=== PATIENT | male | born 1980 | race American Indian/Alaskan Native ===

== ENCOUNTER 2020-04-17 19:36 | Observation (INO) | payer MEDICAID ==
[2020-04-17 20:43] LABS: ANION GAP 14.5 mEq/L (7-13); CHLORIDE,CL 106 mmol/L (98-107); SODIUM,NA 144 mmol/L (136-145)
--- NOTE | 2020-04-17 21:56 | CT ---
PROCEDURE INFORMATION: Exam: CT Cervical Spine Without Contrast Exam date and time: 04/17/2020 9:34 PM Age: 40 years old Clinical indication: Other: Etoh--fell down stairs; Additional info: Fell down stair, intox TECHNIQUE: Imaging protocol: Computed tomography images of the cervical spine without contrast. Radiation optimization: All CT scans at this facility use at least one of these dose optimization techniques: automated exposure control; mA and/or kV adjustment per patient size (includes targeted exams where dose is matched to clinical indication); or iterative reconstruction. COMPARISON: No relevant prior studies available. FINDINGS: Vertebrae: Multilevel discogenic degenerative changes. Normal vertebral alignment. No spinal stenosis. Mild facet DJD. Soft tissues: Unremarkable. Lungs: Lung apices are normal. IMPRESSION: 1. No fracture or malalignment. 2. Mild degenerative spondylosis.
--- NOTE | 2020-04-17 21:58 | CT ---
PROCEDURE INFORMATION: Exam: CT Pelvis Without Contrast; Skeletal Exam date and time: 04/17/2020 9:34 PM Age: 40 years old Clinical indication: Other: Etoh--fell down stairs, left hip pain; Additional info: Fell down stair, intox TECHNIQUE: Imaging protocol: Computed tomography images of the pelvis without contrast. Exam focused on the skeletal structures. Radiation optimization: All CT scans at this facility use at least one of these dose optimization techniques: automated exposure control; mA and/or kV adjustment per patient size (includes targeted exams where dose is matched to clinical indication); or iterative reconstruction. COMPARISON: No relevant prior studies available. FINDINGS: Stomach and bowel: No bowel obstruction. Bladder: The bladder is moderately dilated. Intraperitoneal space: No free fluid, free air. Vasculature: The vasculature demonstrates diffuse mild atherosclerotic calcification. Bones/joints: There are degenerative changes involving the visualized lumbar spine. No acute fracture, dislocation, destructive osseous lesion. Soft tissues: Small, fat-containing umbilical hernia. Varicose veins are present in the ventral subcutaneous fat. There is suggestion of dependent appearing edema within the posterior soft tissue/subcutaneous fat. Other findings: Motion artifact is present. IMPRESSION: No acute osseous abnormality.
--- NOTE | 2020-04-17 22:00 | CT ---
PROCEDURE INFORMATION: Exam: CT Head Without Contrast Exam date and time: 04/17/2020 9:34 PM Age: 40 years old Clinical indication: Other: Etoh--fell downstairs; Additional info: Fell down stair, intox TECHNIQUE: Imaging protocol: Computed tomography of the head without contrast. Radiation optimization: All CT scans at this facility use at least one of these dose optimization techniques: automated exposure control; mA and/or kV adjustment per patient size (includes targeted exams where dose is matched to clinical indication); or iterative reconstruction. COMPARISON: No relevant prior studies available. FINDINGS: Brain: Mild cerebral volume loss. No hemorrhage. Unremarkable white matter. No mass effect. Ventricles: Normal. No ventriculomegaly. Bones/joints: Unremarkable. No acute fracture. Sinuses: Visualized sinuses are unremarkable. No fluid levels. Mastoid air cells: Visualized mastoid air cells are well aerated. Soft tissues: Unremarkable. IMPRESSION: No acute intracranial abnormality.
--- NOTE | 2020-04-17 22:28 | EDM.PDOC ---
ED [facility] GENERAL MEDICAL PROBLEM - General Chief Complaint: Lower Extremity Injury/Pain Stated Complaint: AMBULANCE Time Seen by Provider: 04/17/20 22:26 Source of Information: Reports: Patient History Limitations: Reports: No Limitations - History of Present Illness INITIAL COMMENTS - FREE TEXT/NARRATIVE: c/o pain in his left hip area, fell down stairs today, unknown head injury admits to drinking today. Left Lower Knee Pain Score (Numeric/FACES): 8 Past Medical History Musculoskeletal History: Reports: Amputation - Past Surgical History Respiratory Surgical History: Reports: None Musculoskeletal Surgical History: Reports: Amputation Social & Family History - Tobacco Use Smoking Status *Q: Unknown Ever Smoked Second Hand Smoke Exposure: No - Caffeine Use Caffeine Use: Reports: None - Recreational Drug Use Recreational Drug Use: Yes Recreational Drug Use Frequency: Not Used In Over 6 Months Review of Systems - Review of Systems Review Of Systems: Comprehensive ROS is negative, except as noted in HPI. ED EXAM, GENERAL - Physical Exam Exam: See Below Exam Limited By: No Limitations General Appearance: Alert, WD/WN, Mild Distress, Other (left stump-hip pain) Ears: Hearing Grossly Normal Throat/Mouth: Normal Voice, No Airway Compromise Head: Atraumatic Neck: Non-Tender, Full Range of Motion Respiratory/Chest: No Respiratory Distress Cardiovascular: Regular Rate, Rhythm GI/Abdominal: Soft, Non-Tender Back Exam: Other (haenatoma posterior left hip area) Neurological: Alert, Oriented, No Motor/Sensory Deficits, Inattentive Psychiatric: Normal Affect, Normal Mood Skin Exam: Warm, Dry, Normal Color Lymphatic: No Adenopathy Course - Vital Signs Last Recorded V/S: Last Vital Signs Temp 37.8 C 04/17/20 19:47 Pulse 86 04/17/20 19:47 Resp 18 04/17/20 19:47 BP 158/94 H 04/17/20 19:47 Pulse Ox 94 L 04/17/20 19:47 - Orders/Labs/Meds Orders: Active Orders 24 hr Category Date Time Status MVI w/Vit K 10 ML,Folic Acid 1 MG,Thiamine 100 MG in LR Med 04/17/20 22:30 Ordered @ 999 MLS/HR MVI, Adult with Vitamin K [Infuvite Adult] 10 ml Folic Acid 1 mg Thiamine [Vitamin B-1] 100 mg Lactated Ringers [Ringers, Lactated] 1,000 ml IV ONETIME Medication Orders Multivitamins/Minerals 10 ml/Folic Acid 1 mg/ Thiamine HCl 100 mg/ Lactated Ringer's 1,011.2 mls @ 999 mls/hr IV ONETIME ONE Stop: 04/17/20 23:30 Labs: Laboratory Tests 04/17/20 04/17/20 Range/Units 20:16 20:16 WBC 3.0 L (5.0-10.0) 10^3/uL RBC 4.52 L (4.6-6.2) 10^6/uL Hgb 14.1 (14.0-18.0) g/dL Hct 39.9 L (40.0-54.0) % MCV 88.3 (80-100) fL MCH 31.2 (27.0-34.0) pg MCHC 35.3 H (33.0-35.0) g/dL Plt Count 25 L* (150-450) 10^3/uL Neut % (Auto) 74.8 (42.2-75.2) % Lymph % (Auto) 16.6 L (20.5-50.1) % [place] % (Auto) 6.6 (2-8) % Eos % (Auto) 1.3 (1.0-3.0) % Baso % (Auto) 0.7 (0.0-1.0) % Add Manual Diff Yes Neutrophils % (Manual) 75 (42-75) % Lymphocytes % (Manual) 17 L (20-50) % Monocytes % (Manual) 6 (2-8) % Eosinophils % (Manual) 2 (1-3) % Platelet Estimate Marked dec Sodium 144 (136-145) mmol/L Potassium 3.5 (3.5-5.1) mmol/L Chloride 106 (98-107) mmol/L Carbon Dioxide 27 (21-32) mmol/L Anion Gap 14.5 H (7-13) mEq/L BUN 4 L (7-18) mg/dL Creatinine 0.69 L (0.70-1.30) mg/dL Est Cr Clr Drug Dosing 166.10 mL/min Estimated GFR (MDRD) > 60 BUN/Creatinine Ratio 5.8 (No establ ref range) Glucose 111 H (74-99) mg/dL Calcium 7.2 L (8.5-10.1) mg/dL Total Bilirubin 2.1 H (0.2-1.0) mg/dL AST 125 H (15-37) U/L ALT 56 (16-63) U/L Alkaline Phosphatase 155 H (46-116) U/L Total Protein 7.8 (6.4-8.2) g/dL Albumin 2.9 L (3.4-5.0) g/dL Globulin 4.9 Albumin/Globulin Ratio 0.59 Ethyl Alcohol 504 (0) mg/dL Meds: Medications Generic Name Dose Route Start Last Admin Trade Name Freq PRN Reason Stop Dose Admin Multivitamins/Minerals 10 ml/ 1,011.2 mls @ 999 mls/hr 04/17/20 22:30 Folic Acid 1 mg/ Thiamine HCl IV 04/17/20 23:30 100 mg/ Lactated Ringer's ONETIME ONE - Re-Assessments/Exams Free Text/Narrative Re-Assessment/Exam: 04/17/20 22:[address] Purvis who kindly admitted pt to observation Departure - Departure Time of Disposition: 22:40 Disposition: Refer to Observation Condition: Good Clinical Impression: Alcohol intoxication Qualifiers: Complication of substance-induced condition: uncomplicated Qualified Code(s): F10.920 - Alcohol use, unspecified with intoxication, uncomplicated Contusion of hip, left Qualifiers: Encounter type: initial encounter Qualified Code(s): S70.02XA - Contusion of left hip, initial encounter - Discharge Information Forms: ED Department Discharge Sepsis Event Note - Evaluation Sepsis Screening Result: No Definite Risk - Focused Exam Vital Signs: Vital Signs Temp Pulse Resp BP Pulse Ox 04/17/20 19:47 37.8 C 86 18 158/94 H 94 L Date Exam was Performed: 04/17/20 Time Exam was Performed: 22:39 - My Orders Last 24 Hours: My Active Orders 04/17/20 22:30 MVI w/Vit K 10 ML,Folic Acid 1 MG,Thiamine 100 MG in LR @ 999 MLS/HR MVI, Adult with Vitamin K [Infuvite Adult] 10 ml Folic Acid 1 mg Thiamine [Vitamin B-1] 100 mg Lactated Ringers [Ringers, Lactated] 1,000 ml IV ONETIME - Assessment/Plan Last 24 Hours: My Active Orders 04/17/20 22:30 MVI w/Vit K 10 ML,Folic Acid 1 MG,Thiamine 100 MG in LR @ 999 MLS/HR MVI, Adult with Vitamin K [Infuvite Adult] 10 ml Folic Acid 1 mg Thiamine [Vitamin B-1] 100 mg Lactated Ringers [Ringers, Lactated] 1,000 ml IV ONETIME
[2020-04-17] MEDS ORDERED: MVI, Adult with Vitamin K 10 ML, Folic Acid 1 MG, Thiamine 100 MG in Lactated Ringers 1... IV ONE ×4 (22:30)
[2020-04-17] MEDS ORDERED: LORazepam 2 MG/ML SDV IVPUSH PRN (23:42)
[2020-04-17] MEDS ORDERED: Zolpidem 5 MG Tab PO PRN (23:43)
[2020-04-17] MEDS ORDERED: Ibuprofen 400 MG Tab PO PRN (23:43)
[2020-04-17] MEDS ORDERED: Ondansetron 4 MG Tab.DIS PO PRN (23:43)
[2020-04-17] MEDS ORDERED: Sodium Chloride 0.9% 10 ML Syringe FLUSH PRN (23:43)
[2020-04-17] MEDS ORDERED: Docusate Sodium 100 MG Cap PO PRN (23:43)
--- NOTE | 2020-04-17 23:57 | PCM.HP ---
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 Has never been in treatment before. He is a from [facility] with the left below-knee amputation. Has been drinking heavily, 8 beers daily 4 days. Came to the emergency room, complaining of anxiety, concerned about withdrawal symptoms. He says previously when he had withdrawal it was anxiety. Never had seizure. He says he fell down the steps. Complaining of left leg pain at the amputation site. No chest pain. No shortness of breath. Left Lower Knee Pain Score (Numeric/FACES): 8 - Related Data Allergies/Adverse Reactions: Allergies Allergy/AdvReac Type Severity Reaction Status Date / Time sulfamethoxazole Allergy Hives Verified 04/17/20 23:22 [From Bactrim] trimethoprim [From Bactrim] Allergy Hives Verified 04/17/20 23:22 Home Medications: Home Meds . [No Known Home Meds] 04/17/20 [History] Past Medical History Musculoskeletal History: Reports: Amputation - Past Surgical History Respiratory Surgical History: Reports: None Musculoskeletal Surgical History: Reports: Amputation Social & Family History - Tobacco Use Smoking Status *Q: Unknown Ever Smoked Second Hand Smoke Exposure: No - Caffeine Use Caffeine Use: Reports: None - Recreational Drug Use Recreational Drug Use: Yes Recreational Drug Use Frequency: Not Used In Over 6 Months H&P Review of Systems - Review of Systems: Review Of Systems: See Below General: Denies: Fever, Chills Pulmonary: Denies: Shortness of Breath Cardiovascular: Denies: Chest Pain, Edema Gastrointestinal: Denies: Abdominal Pain Musculoskeletal: Reports: Leg Pain (left) Exam - Exam Exam: See Below - Vital Signs Vital Signs: Last Vital Signs Temp 100.0 F 04/17/20 19:47 Pulse 86 04/17/20 19:47 Resp 18 04/17/20 19:47 BP 158/94 H 04/17/20 19:47 Pulse Ox 94 L 04/17/20 19:47 Weight: 275 lb 6.4 oz - Exam General: Alert, Oriented Neck: Supple, Trachea Midline Lungs: Clear to Auscultation, Normal Respiratory Effort Cardiovascular: Regular Rate, Regular Rhythm GI/Abdominal Exam: Normal Bowel Sounds, Soft, Non-Tender Extremities: Other (Left below-knee amputation) - Patient Data Lab Results Last 24 hrs: Laboratory Results - last 24 hr 04/17/20 04/17/20 Range/Units 20:16 20:16 WBC 3.0 L (5.0-10.0) 10^3/uL RBC 4.52 L (4.6-6.2) 10^6/uL Hgb 14.1 (14.0-18.0) g/dL Hct 39.9 L (40.0-54.0) % MCV 88.3 (80-100) fL MCH 31.2 (27.0-34.0) pg MCHC 35.3 H (33.0-35.0) g/dL Plt Count 25 L* (150-450) 10^3/uL Neut % (Auto) 74.8 (42.2-75.2) % Lymph % (Auto) 16.6 L (20.5-50.1) % [place] % (Auto) 6.6 (2-8) % Eos % (Auto) 1.3 (1.0-3.0) % Baso % (Auto) 0.7 (0.0-1.0) % Add Manual Diff Yes Neutrophils % (Manual) 75 (42-75) % Lymphocytes % (Manual) 17 L (20-50) % Monocytes % (Manual) 6 (2-8) % Eosinophils % (Manual) 2 (1-3) % Platelet Estimate Marked dec Sodium 144 (136-145) mmol/L Potassium 3.5 (3.5-5.1) mmol/L Chloride 106 (98-107) mmol/L Carbon Dioxide 27 (21-32) mmol/L Anion Gap 14.5 H (7-13) mEq/L BUN 4 L (7-18) mg/dL Creatinine 0.69 L (0.70-1.30) mg/dL Est Cr Clr Drug Dosing 166.10 mL/min Estimated GFR (MDRD) > 60 BUN/Creatinine Ratio 5.8 (No establ ref range) Glucose 111 H (74-99) mg/dL Calcium 7.2 L (8.5-10.1) mg/dL Total Bilirubin 2.1 H (0.2-1.0) mg/dL AST 125 H (15-37) U/L ALT 56 (16-63) U/L Alkaline Phosphatase 155 H (46-116) U/L Total Protein 7.8 (6.4-8.2) g/dL Albumin 2.9 L (3.4-5.0) g/dL Globulin 4.9 Albumin/Globulin Ratio 0.59 Ethyl Alcohol 504 (0) mg/dL Result Diagrams: 04/17/20 20:16 04/17/20 20:16 - Problem List (1) Thrombocytopenia SNOMED Code(s): 303527019 ICD Code: D69.6 - THROMBOCYTOPENIA, UNSPECIFIED Status: Acute Current Visit: Yes (2) Alcohol intoxication SNOMED Code(s): 53400185 ICD Code: F10.929 - ALCOHOL USE, UNSPECIFIED WITH INTOXICATION, UNSPECIFIED Status: Acute Current Visit: No Qualifiers: Complication of substance-induced condition: uncomplicated Qualified Code(s ): F10.920 - Alcohol use, unspecified with intoxication, uncomplicated (3) Contusion of hip, left SNOMED Code(s): 91450875 ICD Code: S70.02XA - CONTUSION OF LEFT HIP, INITIAL ENCOUNTER Status: Acute Current Visit: No Qualifiers: Encounter type: initial encounter Qualified Code(s): S70.02XA - Contusion of left hip, initial encounter Problem List Initiated/Reviewed/Updated: Yes Orders Last 24hrs: Active Orders 24 hr Category Date Time Status Admission Diagnosis [ADT] Stat ADT 04/17/20 22:41 Ordered Admission Status [Patient Status] [ADT] Routine ADT 04/17/20 22:41 Active Antiembolic Devices [RC] PER UNIT ROUTINE Care 04/17/20 23:44 Ordered Oxygen Therapy [RC] PRN Care 04/17/20 23:43 Ordered Peripheral IV Care [RC] . DIRECTED Care 04/17/20 23:44 Ordered Up With Assistance [RC] ASDIRECTED Care 04/17/20 23:43 Ordered VTE/DVT Education [RC] PER UNIT ROUTINE Care 04/17/20 23:43 Ordered Vital Signs [RC] Q4H Care 04/17/20 23:43 Ordered Regular Diet [DIET] Diet 04/17/20 Breakfast Ordered BASIC METABOLIC PANEL,BMP [CHEM] AM Lab 04/18/20 05:15 Ordered CBC WITH AUTO DIFF [HEME] AM Lab 04/18/20 05:15 Ordered MAGNESIUM [CHEM] AM Lab 04/18/20 05:11 Ordered PHOSPHORUS [CHEM] AM Lab 04/18/20 05:11 Ordered Acetaminophen [Tylenol] Med 04/17/20 23:43 Ordered 650 mg PO Q4H PRN Docusate Sodium [Colace] Med 04/17/20 23:43 Ordered 100 mg PO BID PRN Folic Acid Med 04/18/20 09:00 Ordered 1 mg PO DAILY Ibuprofen [Motrin] Med 04/17/20 23:43 Ordered 400 mg PO Q6H PRN LORazepam [Ativan] Med 04/17/20 23:42 Ordered See Protocol IVPUSH Q1H PRN LORazepam [Ativan] Med 04/17/20 23:43 Ordered See Protocol PO Q1H PRN Multivitamins/Minerals [Vitamins and Minerals] Med 04/18/20 08:00 Ordered 1 tab PO WITHBREAKFAST Ondansetron [Zofran ODT] Med 04/17/20 23:43 Ordered 4 mg PO Q6H PRN Sodium Chloride 0.9% [Saline Flush] Med 04/17/20 23:43 Ordered 10 ml FLUSH ASDIRECTED PRN Thiamine [Vitamin B-1] Med 04/18/20 09:00 Ordered 100 mg PO DAILY Zolpidem [Ambien] Med 04/17/20 23:43 Ordered 5 mg PO BEDTIME PRN Antiembolic Hose [OM.PC] Per Unit Routine Oth 04/17/20 23:44 Ordered Peripheral IV Insertion Adult [OM.PC] Routine Oth 04/17/20 23:43 Ordered Sequential Compression Device [OM.PC] Per Unit Routine Oth 04/17/20 23:44 Ordered Resuscitation Status Routine Resus Stat 04/17/20 23:43 Ordered Medication Orders Acetaminophen (Tylenol) 650 mg PO Q4H PRN PRN Reason: Pain (Mild 1-3)/fever Docusate Sodium (Colace) 100 mg PO BID PRN PRN Reason: Constipation Folic Acid (Folic Acid) 1 mg PO DAILY MITALI Ibuprofen (Motrin) 400 mg PO Q6H PRN PRN Reason: Pain (moderate 4-6) Lorazepam (Ativan) 0 mg IVPUSH Q1H PRN; Protocol PRN Reason: [facility] protocol Lorazepam (Ativan) 0 mg PO Q1H PRN; Protocol PRN Reason: ciwa ptotocol Multivitamins/Minerals (Vitamins And Minerals) 1 tab PO WITHBREAKFAST MITALI Ondansetron HCl (Zofran Odt) 4 mg PO Q6H PRN PRN Reason: nausea, able to take PO Sodium Chloride (Saline Flush) 10 ml FLUSH ASDIRECTED PRN PRN Reason: Keep Vein Open Thiamine HCl (Vitamin B-1) 100 mg PO DAILY MITALI Zolpidem Tartrate (Ambien) 5 mg PO BEDTIME PRN PRN Reason: Sleep Assessment/Plan Comment:: 40-year-old with below-knee left leg amputation. History of alcohol abuse. Presented after a fall, alcohol intoxication, would like to stop drinking. 1. Acute Alcohol intoxication. We will give the patient IV fluids with IV electrolyte replacement. Follow electrolytes. 2. Chronic Alcohol addiction. Consult Social Work and evaluate for alcohol treatment programs. 3. Chronic alcohol use. Supplement thiamine, folate and multivitamin. 4. High Risk for alcohol withdrawal. Frequent evaluations and titration of Ativan per the [facility] protocol 5. left leg pain will monitor no apparent bony injury tylenol for pain - avoid NSAIDS for pain (thrombocytopenia), avoid narcotics 6. hepatitis likely acloholic follow LFT-s 7. thrombocytopenia, leukopenia likely due to alcohol abuse will monitor 8. Deep venous thrombosis (DVT) prophylaxis will be with mobillization , scd right leg
[2020-04-18] MEDS: NS + KCl 20mEq/L 1,000 ML IV SCH ×2 (00:40→08:52)
[2020-04-18] MEDS: Acetaminophen 325 MG Tab PO PRN ×2 (01:20→08:49)
[2020-04-18] MEDS: LORazepam 1 MG Tab PO PRN ×3 (06:06→11:08)
[2020-04-18 06:45] LABS: ANION GAP 14.4 mEq/L (7-13); CHLORIDE,CL 108 mmol/L (98-107); SODIUM,NA 147 mmol/L (136-145)
[2020-04-18] MEDS ORDERED: Multivitamins, Therapeutic with Minerals Tab PO SCH (08:00)
[2020-04-18] MEDS ORDERED: Thiamine 100 MG Tab PO SCH (09:00)
[2020-04-18] MEDS ORDERED: Folic Acid 1 MG Tab PO SCH (09:00)
[2020-04-18 09:15] LABS: PTT,PARTIAL THROMBOPLSTIN TIME 33.4 SEC (22.0-34.0)
[2020-04-18] MEDS ORDERED: Potassium Chloride 10 MEQ Tab.ER PO ONE (10:49)
--- NOTE | 2020-04-18 11:13 | PCM.DCSUM1 ---
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 History of alcohol abuse. Presented after a fall, alcohol intoxication, would like to stop drinking. 1. Acute Alcohol intoxication. received IV fluids with IV electrolyte replacement. Follow electrolytes. 2. Chronic Alcohol addiction. Consult Social Work and evaluate for alcohol treatment programs. 3. Chronic alcohol use. Supplement thiamine, folate and multivitamin. 4. High Risk for alcohol withdrawal. Frequent evaluations and titration of Ativan per the CIWA protocol 5. fall while intoxicated ct head, C spine, Pelvis negative for bony abnormalities left leg pain, left flank bruise will monitor tylenol for pain - avoid NSAIDS for pain (thrombocytopenia), avoid narcotics 6. hepatitis likely acloholic follow LFT-s 7. thrombocytopenia, leukopenia appears to be chronic likely due to alcohol abuse ptt, fibrinogen, ddimer normal plt 8, recent injury - consider Plt transfusion - transfer to [facility] for eval 8. Deep venous thrombosis (DVT) prophylaxis was with mobillization , scd right leg Diagnosis: Stroke: No - Discharge Data Discharge Date: 04/18/20 Discharge Disposition: DC/Tfer to Acute Hospital 02 Condition: Fair - Referral to Home Health Primary Care Physician: PCP Unobtainable - Discharge Diagnosis/Problem(s) (1) Thrombocytopenia SNOMED Code(s): 800212800 ICD Code: D69.6 - THROMBOCYTOPENIA, UNSPECIFIED Status: Acute Current Visit: Yes (2) Alcohol intoxication SNOMED Code(s): 52706009 ICD Code: F10.929 - ALCOHOL USE, UNSPECIFIED WITH INTOXICATION, UNSPECIFIED Status: Acute Current Visit: No Qualifiers: Complication of substance-induced condition: uncomplicated Qualified Code(s ): F10.920 - Alcohol use, unspecified with intoxication, uncomplicated (3) Contusion of hip, left SNOMED Code(s): 39282589 ICD Code: S70.02XA - CONTUSION OF LEFT HIP, INITIAL ENCOUNTER Status: Acute Current Visit: No Qualifiers: Encounter type: initial encounter Qualified Code(s): S70.02XA - Contusion of left hip, initial encounter - Patient Instructions Diet: Heart Healthy Diet Activity: As Tolerated - Discharge Plan *PRESCRIPTION DRUG MONITORING PROGRAM REVIEWED*: Not Applicable *COPY OF PRESCRIPTION DRUG MONITORING REPORT IN PATIENT LEON: Not Applicable Home Medications: Home Meds Acetaminophen [Tylenol] 650 mg PO Q4H PRN tablet 04/18/20 [Rx] Docusate Sodium [Colace] 100 mg PO BID PRN cap 04/18/20 [Rx] Folic Acid 1 mg PO DAILY tablet 04/18/20 [Rx] LORazepam [Ativan] 0 mg IVPUSH Q1H PRN vial 04/18/20 [Rx] LORazepam [Ativan] 0 mg PO Q1H PRN tablet 04/18/20 [Rx] Multivitamins/Minerals [Vitamins and Minerals] 1 tab PO WITHBREAKFAST tablet [Rx] Ondansetron [Zofran ODT] 4 mg PO Q6H PRN tab.dis 04/18/20 [Rx] Sodium Chloride 0.9% [Saline Flush] 10 ml FLUSH ASDIRECTED PRN syringe [Rx] Thiamine [Vitamin B-1] 100 mg PO DAILY tablet 04/18/20 [Rx] Zolpidem [Ambien] 5 mg PO BEDTIME PRN tablet 04/18/20 [Rx] Oxygen Therapy Mode: Room Air - Discharge Summary/Plan Comment DC Time >30 min.: Yes (arranging transfer, ambulance, d/w [facility] one call, dr. Alanis) - General Info Date of Service: 04/18/20 Subjective Update: stable overnight moderate anxiety, no apparent bleeding c/o left leg stump pain, no bruise unchanged left flank bruise Functional Status: Reports: Tolerating Diet - Review of Systems General: Denies: Fever Pulmonary: Denies: Shortness of Breath Cardiovascular: Denies: Chest Pain Gastrointestinal: Denies: Abdominal Pain - Patient Data Vitals - Most Recent: Last Vital Signs Temp 98.8 F 04/18/20 08:00 Pulse 80 04/18/20 08:00 Resp 18 04/18/20 08:00 BP 129/67 04/18/20 08:00 Pulse Ox 92 L 04/18/20 08:00 Weight - Most Recent: 275 lb 6.4 oz I&O - Last 24 hours: Intake & Output 04/17/20 04/18/20 04/18/20 22:59 06:59 14:59 Intake Total 1000 1810 Output Total 750 Balance 250 1810 Lab Results - Last 24 hrs: Laboratory Results - last 24 hr 04/17/20 04/17/20 04/18/20 Range/Units 20:16 20:16 05:57 WBC 3.0 L 2.4 L (5.0-10.0) 10^3/uL RBC 4.52 L 3.95 L (4.6-6.2) 10^6/uL Hgb 14.1 12.3 L D (14.0-18.0) g/dL Hct 39.9 L 35.5 L (40.0-54.0) % MCV 88.3 89.9 (80-100) fL MCH 31.2 31.1 (27.0-34.0) pg MCHC 35.3 H 34.6 (33.0-35.0) g/dL Plt Count 25 L* 8 L* (150-450) 10^3/uL Neut % (Auto) 74.8 65.7 (42.2-75.2) % Lymph % (Auto) 16.6 L 21.1 (20.5-50.1) % [place] % (Auto) 6.6 11.6 H (2-8) % Eos % (Auto) 1.3 1.2 (1.0-3.0) % Baso % (Auto) 0.7 0.4 (0.0-1.0) % Add Manual Diff Yes Neutrophils % (Manual) 75 (42-75) % Lymphocytes % (Manual) 17 L (20-50) % Monocytes % (Manual) 6 (2-8) % Eosinophils % (Manual) 2 (1-3) % Platelet Estimate Marked dec PT (9.0-12.0) SEC INR (0.9-1.2) APTT (22.0-34.0) SEC Fibrinogen (200-400) mg/dL D-Dimer, Quantitative (0-400) ng/mL Sodium 144 (136-145) mmol/L Potassium 3.5 (3.5-5.1) mmol/L Chloride 106 (98-107) mmol/L Carbon Dioxide 27 (21-32) mmol/L Anion Gap 14.5 H (7-13) mEq/L BUN 4 L (7-18) mg/dL Creatinine 0.69 L (0.70-1.30) mg/dL Est Cr Clr Drug Dosing 166.10 mL/min Estimated GFR (MDRD) > 60 BUN/Creatinine Ratio 5.8 (No establ ref range) Glucose 111 H (74-99) mg/dL Calcium 7.2 L (8.5-10.1) mg/dL Phosphorus (2.6-4.7) mg/dL Magnesium (1.8-2.4) mg/dL Total Bilirubin 2.1 H (0.2-1.0) mg/dL Direct Bilirubin (0.0-0.2) mg/dL Indirect Bilirubin AST 125 H (15-37) U/L ALT 56 (16-63) U/L Alkaline Phosphatase 155 H (46-116) U/L Total Protein 7.8 (6.4-8.2) g/dL Albumin 2.9 L (3.4-5.0) g/dL Globulin 4.9 Albumin/Globulin Ratio 0.59 Ethyl Alcohol 504 (0) mg/dL Blood Type Gel Antibody Screen 04/18/20 04/18/20 04/18/20 Range/Units 05:57 05:57 05:57 WBC (5.0-10.0) 10^3/uL RBC (4.6-6.2) 10^6/uL Hgb (14.0-18.0) g/dL Hct (40.0-54.0) % MCV (80-100) fL MCH (27.0-34.0) pg MCHC (33.0-35.0) g/dL Plt Count (150-450) 10^3/uL Neut % (Auto) (42.2-75.2) % Lymph % (Auto) (20.5-50.1) % [place] % (Auto) (2-8) % Eos % (Auto) (1.0-3.0) % Baso % (Auto) (0.0-1.0) % Add Manual Diff Neutrophils % (Manual) (42-75) % Lymphocytes % (Manual) (20-50) % Monocytes % (Manual) (2-8) % Eosinophils % (Manual) (1-3) % Platelet Estimate PT 13.8 H (9.0-12.0) SEC INR 1.5 H (0.9-1.2) APTT 33.4 (22.0-34.0) SEC Fibrinogen 226 (200-400) mg/dL D-Dimer, Quantitative 284 (0-400) ng/mL Sodium 147 H (136-145) mmol/L Potassium 3.4 L (3.5-5.1) mmol/L Chloride 108 H (98-107) mmol/L Carbon Dioxide 28 (21-32) mmol/L Anion Gap 14.4 H (7-13) mEq/L BUN 5 L (7-18) mg/dL Creatinine 0.73 (0.70-1.30) mg/dL Est Cr Clr Drug Dosing 156.99 mL/min Estimated GFR (MDRD) > 60 BUN/Creatinine Ratio (No establ ref range) Glucose 105 H (74-99) mg/dL Calcium 7.0 L (8.5-10.1) mg/dL Phosphorus 3.7 (2.6-4.7) mg/dL Magnesium 1.5 L (1.8-2.4) mg/dL Total Bilirubin (0.2-1.0) mg/dL Direct Bilirubin (0.0-0.2) mg/dL Indirect Bilirubin AST (15-37) U/L ALT (16-63) U/L Alkaline Phosphatase (46-116) U/L Total Protein (6.4-8.2) g/dL Albumin (3.4-5.0) g/dL Globulin Albumin/Globulin Ratio Ethyl Alcohol (0) mg/dL Blood Type Gel Antibody Screen 04/18/20 04/18/20 Range/Units 05:57 05:57 WBC (5.0-10.0) 10^3/uL RBC (4.6-6.2) 10^6/uL Hgb (14.0-18.0) g/dL Hct (40.0-54.0) % MCV (80-100) fL MCH (27.0-34.0) pg MCHC (33.0-35.0) g/dL Plt Count (150-450) 10^3/uL Neut % (Auto) (42.2-75.2) % Lymph % (Auto) (20.5-50.1) % [place] % (Auto) (2-8) % Eos % (Auto) (1.0-3.0) % Baso % (Auto) (0.0-1.0) % Add Manual Diff Neutrophils % (Manual) (42-75) % Lymphocytes % (Manual) (20-50) % Monocytes % (Manual) (2-8) % Eosinophils % (Manual) (1-3) % Platelet Estimate PT (9.0-12.0) SEC INR (0.9-1.2) APTT (22.0-34.0) SEC Fibrinogen (200-400) mg/dL D-Dimer, Quantitative (0-400) ng/mL Sodium (136-145) mmol/L Potassium (3.5-5.1) mmol/L Chloride (98-107) mmol/L Carbon Dioxide (21-32) mmol/L Anion Gap (7-13) mEq/L BUN (7-18) mg/dL Creatinine (0.70-1.30) mg/dL Est Cr Clr Drug Dosing mL/min Estimated GFR (MDRD) BUN/Creatinine Ratio (No establ ref range) Glucose (74-99) mg/dL Calcium (8.5-10.1) mg/dL Phosphorus (2.6-4.7) mg/dL Magnesium (1.8-2.4) mg/dL Total Bilirubin 1.5 H (0.2-1.0) mg/dL Direct Bilirubin 0.8 H (0.0-0.2) mg/dL Indirect Bilirubin 0.7 AST 108 H (15-37) U/L ALT 50 (16-63) U/L Alkaline Phosphatase 135 H (46-116) U/L Total Protein 6.8 (6.4-8.2) g/dL Albumin 2.4 L (3.4-5.0) g/dL Globulin 4.4 Albumin/Globulin Ratio 0.55 Ethyl Alcohol (0) mg/dL Blood Type B POSITIVE Gel Antibody Screen Negative Med Orders - Current: Current Medications Acetaminophen (Tylenol) 650 mg PO Q4H PRN PRN Reason: Pain (Mild 1-3)/fever Last Admin: 04/18/20 08:49 Dose: 650 mg Docusate Sodium (Colace) 100 mg PO BID PRN PRN Reason: Constipation Folic Acid (Folic Acid) 1 mg PO DAILY [facility] Last Admin: 04/18/20 08:46 Dose: 1 mg Potassium Chloride/Sodium Chloride (Normal Saline With 20 Meq Kcl) 1,000 mls @ 125 mls/hr IV ASDIRECTED [facility] Last Admin: 06/06/20 08:52 Dose: 125 mls/hr Lorazepam (Ativan) 0 mg IVPUSH Q1H PRN; Protocol PRN Reason: ciwa protocol Lorazepam (Ativan) 0 mg PO Q1H PRN; Protocol PRN Reason: ciwa ptotocol Last Admin: 04/18/20 08:45 Dose: 1 mg Multivitamins/Minerals (Vitamins And Minerals) 1 tab PO WITHBREAKFAST [facility] Last Admin: 04/18/20 08:46 Dose: 1 tab Ondansetron HCl (Zofran Odt) 4 mg PO Q6H PRN PRN Reason: nausea, able to take PO Sodium Chloride (Saline Flush) 10 ml FLUSH ASDIRECTED PRN PRN Reason: Keep Vein Open Thiamine HCl (Vitamin B-1) 100 mg PO DAILY [facility] Last Admin: 04/18/20 08:46 Dose: 100 mg Zolpidem Tartrate (Ambien) 5 mg PO BEDTIME PRN PRN Reason: Sleep Last Admin: 04/18/20 01:20 Dose: 5 mg Discontinued Medications Multivitamins/Minerals 10 ml/Folic Acid 1 mg/ Thiamine HCl 100 mg/ Lactated Ringer's 1,011.2 mls @ 999 mls/hr IV ONETIME ONE Stop: 04/17/20 23:30 Last Admin: 04/17/20 22:47 Dose: 999 mls/hr Ibuprofen (Motrin) 400 mg PO Q6H PRN PRN Reason: Pain (moderate 4-6) Potassium Chloride (Klor-Con 10) 20 meq PO ONETIME ONE Stop: 04/18/20 10:50 - Exam General: Reports: Alert, Oriented Neck: Reports: Supple Lungs: Reports: Clear to Auscultation, Normal Respiratory Effort Cardiovascular: Reports: Regular Rate, Regular Rhythm GI/Abdominal Exam: Normal Bowel Sounds, Soft, Other (obese) Extremities: No Pedal Edema, Other (left BKA) Skin: Reports: Ecchymosis (left flank) Neurological: Reports: No New Focal Deficit Psy/Mental Status: Reports: Alert, Anxious
== END 2020-04-18 11:38 ==
LOC: DL.ED 19:36 → EDBD 22:41 → DL.MS 22:41
PROVIDERS: ADMIT Internal Medicine; ATTEND Internal Medicine
DX: F10.120 Alcohol abuse with intoxication, uncomplicated (principal); S70.02XA Contusion of left hip, initial encounter; D69.6 Thrombocytopenia, unspecified; K75.9 Inflammatory liver disease, unspecified; M79.605 Pain in left leg; D72.819 Decreased white blood cell count, unspecified; Z88.2 Allergy status to sulfonamides; Z88.1 Allergy status to other antibiotic agents; W07.XXXA Fall from chair, initial encounter; Y90.0 Blood alcohol level of less than 20 mg/100 ml
CPT/HCPCS: 36415; 70450; 72125; 72192; 80048; 80053; 80076; 80307; 83735; 84100; 85025; 85379; 85384; 85610; 85730; 86850; 86900; 86901; A9270; J3411; J3480; J7120; 96361; 96365; 96374; 96375; 99285-25; G0378; J3490

== ENCOUNTER 2020-06-17 18:06 | Emergency (ER) | payer MEDICAID ==
[2020-06-17] MEDS ORDERED: Ketorolac 30 MG/ML SDV IM ONE (18:36)
--- NOTE | 2020-06-17 18:45 | EDM.PDOC ---
<Prasad Sprague Dudley - Last Filed: 06/17/20 18:55> ED HPI GENERAL MEDICAL PROBLEM - General Chief Complaint: Lower Extremity Injury/Pain Stated Complaint: AMBULANCE Time Seen by Provider: 06/17/20 18:38 - Related Data Allergies Allergy/AdvReac Type Severity Reaction Status Date / Time sulfamethoxazole Allergy Hives Verified 04/17/20 23:22 [From Bactrim] trimethoprim [From Bactrim] Allergy Hives Verified 04/17/20 23:22 Review of Systems - Review of Systems Review Of Systems: Comprehensive ROS is negative, except as noted in HPI. Course - Re-Assessments/Exams Free Text/Narrative Re-Assessment/Exam: 06/17/20 18:55 I saw and evaluated the patient. Discussed with resident and agree with residents findings and plan as documented in the residents note. Departure - Departure Disposition: Home, Self-Care 01 Clinical Impression: Fall (on) (from) other stairs and steps, initial encounter, Left leg injury - Discharge Information Forms: ED Department Discharge <Andrew Zuniga - Last Filed: 06/17/20 19:01> ED HPI GENERAL MEDICAL PROBLEM - General Source of Information: Reports: Patient History Limitations: Reports: No Limitations - History of Present Illness INITIAL COMMENTS - FREE TEXT/NARRATIVE: Patient is a 40 year old with left BKA presents with a fall and left knee pain. States he's been drinking the past 3-4 days. He drank 18 pack of [employer] per day. He tried to walk downstairs this morning at about 2 AM when he tripped and had a fall. Denies hitting his head. He notes that he was able to walk upstairs after the fall. Denies LOC, dizziness, lightheadedness, seizures. Denies history of seizures. He would like to have something for his left knee pain. Onset: Today (Fall at 2 AM with left knee pain.) Duration: Constant Location: Reports: Lower Extremity, Left Quality: Reports: Ache Improves with: Reports: None Worsens with: Reports: None Associated Symptoms: Reports: No Other Symptoms Treatments [employer]Y PRINCIPAL: Reports: Acetaminophen Past Medical History Musculoskeletal History: Reports: Amputation - Past Surgical History Respiratory Surgical History: Reports: None Musculoskeletal Surgical History: Reports: Amputation Social & Family History - Family History Family Medical History: Unobtainable - Caffeine Use Caffeine Use: Reports: None Review of Systems - Review of Systems Musculoskeletal: Reports: Leg Pain. Denies: Joint Pain, Joint Swelling, Muscle Pain Neurological: Denies: Numbness, Paresthesia, Seizure, Weakness ED EXAM, GENERAL - Physical Exam Exam: See Below Exam Limited By: No Limitations Nose: Other (l) Course - Vital Signs Last Recorded V/S: Last Vital Signs Temp 98.6 F 06/17/20 18:15 Pulse 78 06/17/20 18:15 Resp 16 06/17/20 18:15 BP 124/68 06/17/20 18:15 Pulse Ox 99 06/17/20 18:15 - Orders/Labs/Meds Orders: Active Orders 24 hr Category Date Time Status Knee 3V Lt [CR] Urgent Exams 06/17/20 18:23 Ordered Meds: Medications Discontinued Medications Generic Name Dose Route Start Last Admin Trade Name Bradq PRN Reason Stop Dose Admin Ketorolac Tromethamine 30 mg 06/17/20 18:36 06/17/20 18:44 Toradol IM 06/17/20 18:37 30 mg ONETIME ONE Administration - Re-Assessments/Exams Free Text/Narrative Re-Assessment/Exam: 06/17/20 18:46 After initial assessment patient refused any radiologic imaging or lab work. Patient demanding for pain medication or he will leave AMA. 1 dose of Toradol IM given. Departure - Departure Time of Disposition: 18:52 Condition: Good Sepsis Event Note (ED) - Focused Exam Vital Signs: Vital Signs Temp Pulse Resp BP Pulse Ox 06/17/20 18:15 98.6 F 78 16 124/68 99 - Assessment/Plan Assessment:: Left leg injury - Patient was given IM Toradol. - Refused imaging studies or labs. - Discharged home in stable condition. - Return criteria discussed.
== END 2020-06-17 19:10 | disposition home or self-care (01) ==
LOC: DL.ED 18:06
DX: S89.92XA Unspecified injury of left lower leg, initial encounter (principal); Z88.2 Allergy status to sulfonamides; Z89.512 Acquired absence of left leg below knee; W10.9XXA Fall (on) (from) unspecified stairs and steps, initial encounter
CPT/HCPCS: 96372; 99283; J1885

== ENCOUNTER 2020-07-10 22:05 | Emergency (ER) | payer MEDICAID ==
--- NOTE | 2020-07-10 22:27 | EDM.PDOC ---
ED HPI GENERAL MEDICAL PROBLEM - General Chief Complaint: Lower Extremity Injury/Pain Stated Complaint: AMBULANCE Time Seen by Provider: 07/10/20 22:21 Source of Information: Reports: Patient History Limitations: Reports: No Limitations - History of Present Illness INITIAL COMMENTS - FREE TEXT/NARRATIVE: states he fell onto his stump today Treatments [employer] SAL[employer] REPRESENTATIVE: Reports: Acetaminophen Left Stump Pain Score (Numeric/FACES): 10 - Related Data Allergies Allergy/AdvReac Type Severity Reaction Status Date / Time sulfamethoxazole Allergy Hives Verified 04/17/20 23:22 [From Bactrim] trimethoprim [From Bactrim] Allergy Hives Verified 04/17/20 23:22 Past Medical History - Past Health History Medical/Surgical History: Denies Medical/Surgical History Musculoskeletal History: Reports: Amputation - Past Surgical History Respiratory Surgical History: Reports: None Musculoskeletal Surgical History: Reports: Amputation Social & Family History - Family History Family Medical History: Unobtainable - Caffeine Use Caffeine Use: Reports: None Review of Systems - Review of Systems Review Of Systems: Comprehensive ROS is negative, except as noted in HPI. ED EXAM, GENERAL - Physical Exam Exam: See Below Exam Limited By: No Limitations General Appearance: Alert, WD/WN, Mild Distress, Other (discomfort) Ears: Hearing Grossly Normal Throat/Mouth: Normal Voice, No Airway Compromise Head: Atraumatic Neck: Non-Tender, Full Range of Motion Respiratory/Chest: No Respiratory Distress Cardiovascular: Regular Rate, Rhythm GI/Abdominal: Soft, Non-Tender Extremities: Other (left BKA stump with s/s discolouration, no skin tears or open wounds.) Neurological: Alert, Oriented, Normal Cognition, No Motor/Sensory Deficits Psychiatric: Flat Affect Skin Exam: Warm, Dry, Normal Color Lymphatic: No Adenopathy Course - Vital Signs Last Recorded V/S: Last Vital Signs Temp 37.1 C 07/10/20 22:21 Pulse 78 07/10/20 22:21 Resp 18 07/10/20 22:21 BP 145/80 H 07/10/20 22:21 Pulse Ox 98 07/10/20 22:21 - Re-Assessments/Exams Free Text/Narrative Re-Assessment/Exam: 07/10/20 23:47 results discussed with pt. Departure - Departure Time of Disposition: 23:47 Disposition: Home, Self-Care 01 Condition: Good Clinical Impression: Contusion of leg, left Qualifiers: Encounter type: initial encounter Qualified Code(s): S80.12XA - Contusion of left lower leg, initial encounter - Discharge Information Forms: ED Department Discharge Additional Instructions: 1) elevate left leg as much as possible 2) follow up at clinic Sepsis Event Note (ED) - Evaluation Sepsis Screening Result: No Definite Risk - Focused Exam Vital Signs: Vital Signs Temp Pulse Resp BP Pulse Ox 07/10/20 22:21 37.1 C 78 18 145/80 H 98
--- NOTE | 2020-07-10 23:35 | CR ---
PROCEDURE INFORMATION: Exam: XR Left Tibia and Fibula Exam date and time: 07/10/2020 11:13 PM Age: 40 years old Clinical indication: Other: Stump pain; Additional info: Fell onto stump today TECHNIQUE: Imaging protocol: XR Left tibia and fibula. Views: 2 views. COMPARISON: No relevant prior studies available. FINDINGS: Bones/joints: Status post [id number] amputation. No bone destruction or periosteal reaction. Soft tissues: No acute soft tissue abnormalities are identified. IMPRESSION: No acute findings.
[2020-07-10] MEDS ORDERED: traMADol 50 MG Tab PO ONE (23:48)
== END 2020-07-11 00:35 | disposition home or self-care (01) ==
LOC: DL.ED 22:05
DX: T87.89 Other complications of amputation stump (principal); Z88.1 Allergy status to other antibiotic agents; Z88.2 Allergy status to sulfonamides
CPT/HCPCS: 73590; 99284; A9270; 99282

== ENCOUNTER 2020-09-08 21:12 | Emergency (ER) | payer MEDICAID ==
[2020-09-08] MEDS ORDERED: Ondansetron 4 MG/2 ML SDV IVPUSH ONE (22:03)
[2020-09-08] MEDS ORDERED: fentaNYL 100 MCG/2 ML SDV IVPUSH ONE (22:03)
[2020-09-08 22:32] LABS: CHLORIDE,CL 99 mmol/L (98-107)
[2020-09-08 22:34] LABS: SODIUM,NA 135 mmol/L (136-145)
--- NOTE | 2020-09-08 23:01 | EDM.PDOC ---
ED HPI GENERAL MEDICAL PROBLEM - General Chief Complaint: Lower Extremity Injury/Pain Stated Complaint: AMBULANCE Time Seen by Provider: 09/08/20 21:25 Source of Information: Reports: Patient History Limitations: Reports: No Limitations - History of Present Illness INITIAL COMMENTS - FREE TEXT/NARRATIVE: ED with c/o pain to back between shoulder blades and down back, pain also to left lower abdomen, right lower leg. Reports sliping on ice in alley and landed on mid back, Denied loss of consciousness, Denied hitting head, Denied neck pain. no numbness or tingling. 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 Reported able to roll over and crawl across alley up few stairs to apartment. Slept for a couple hours and pain worse. Swelling to lower right leg. Hx of cirrhosis. Right Lower Leg Pain Score (Numeric/FACES): 10 - Related Data Allergies Allergy/AdvReac Type Severity Reaction Status Date / Time sulfamethoxazole Allergy Hives Verified 09/08/20 21:14 [From Bactrim] trimethoprim [From Bactrim] Allergy Hives Verified 09/08/20 21:14 Past Medical History - Past Health History Medical/Surgical History: Denies Medical/Surgical History Musculoskeletal History: Reports: Amputation Psychiatric History: Reports: Addiction, Anxiety, Depression, PTSD - Past Surgical History Respiratory Surgical History: Reports: None Musculoskeletal Surgical History: Reports: Amputation Social & Family History - Family History Family Medical History: Unobtainable - Tobacco Use Tobacco Use Status *Q: Never Tobacco User Second Hand Smoke Exposure: No - Caffeine Use Caffeine Use: Reports: None - Alcohol Use Days Per Week of Alcohol Use: 2 Number of Drinks Per Day: 0 Total Drinks Per Week: 0 - Recreational Drug Use Recreational Drug Use: No Review of Systems - Review of Systems Review Of Systems: Comprehensive ROS is negative, except as noted in HPI. ED EXAM, GENERAL - Physical Exam Exam: See Below Exam Limited By: No Limitations General Appearance: Alert, Lethargic, Mild Distress, Other (jaundice) Eye Exam: Bilateral Eye: EOMI, Other (icterus) Ears: Normal External Exam, Hearing Grossly Normal Nose: Normal Inspection Throat/Mouth: Normal Inspection Head: Atraumatic, Normocephalic Neck: Normal Inspection, Full Range of Motion Respiratory/Chest: No Respiratory Distress, Lungs Clear, Normal Breath Sounds Cardiovascular: Normal Peripheral Pulses, Regular Rate, Rhythm. No: No Edema Peripheral Pulses: 2+: Dorsalis Pedis (R) GI/Abdominal: Normal Bowel Sounds, Soft, Tender (general) Back Exam: Paraspinal Tenderness (throacic upper lumbar), Vertebral Tenderness (mid thoracic) Extremities: Pedal Edema (right mid cartwright), Other (AKA left) Neurological: Alert, Oriented, Normal Cognition Psychiatric: Normal Affect, Normal Mood Skin Exam: Warm, Dry, Ecchymosis (bruising across lower abdomen, posterior right mid thigh, left flank ), Jaundice Course - Vital Signs Last Recorded V/S: Last Vital Signs Temp 100.3 F 09/08/20 21:13 Pulse 98 09/08/20 21:13 Resp 16 09/08/20 21:13 BP 144/76 H 09/08/20 21:13 Pulse Ox 96 09/08/20 21:13 - Orders/Labs/Meds Orders: Active Orders 24 hr Category Date Time Status CULTURE URINE [RM] Stat Lab 09/08/20 22:45 Received Labs: Laboratory Tests 09/08/20 09/08/20 09/08/20 Range/Units 22:07 22:07 22:07 WBC 7.7 (5.0-10.0) 10^3/uL RBC 3.46 L (4.6-6.2) 10^6/uL Hgb 12.3 L (14.0-18.0) g/dL Hct 33.9 L (40.0-54.0) % MCV 98.0 D (80-100) fL MCH 35.5 H (27.0-34.0) pg MCHC 36.3 H (33.0-35.0) g/dL Plt Count 35 L* (150-450) 10^3/uL Neut % (Auto) 85.1 H (42.2-75.2) % Lymph % (Auto) 5.8 L (20.5-50.1) % [place] % (Auto) 6.1 (2-8) % Eos % (Auto) 2.1 (1.0-3.0) % Baso % (Auto) 0.9 (0.0-1.0) % Add Manual Diff Yes Neutrophils % (Manual) 81 H (42-75) % Band Neutrophils % 4 % Lymphocytes % (Manual) 7 L (20-50) % Monocytes % (Manual) 6 (2-8) % Eosinophils % (Manual) 2 (1-3) % Platelet Estimate Marked dec PT 17.0 H (9.0-12.0) SEC INR 1.8 H (0.9-1.2) Sodium 135 L D (136-145) mmol/L Potassium 3.0 L (3.5-5.1) mmol/L Chloride 99 (98-107) mmol/L Carbon Dioxide 24 (21-32) mmol/L Anion Gap 15.0 H (7-13) mEq/L BUN 6 L (7-18) mg/dL Creatinine 0.74 (0.70-1.30) mg/dL Est Cr Clr Drug Dosing 148.46 mL/min Estimated GFR (MDRD) > 60 BUN/Creatinine Ratio 8.1 (No establ ref range) Glucose 131 H (74-99) mg/dL Calcium 7.3 L (8.5-10.1) mg/dL Total Bilirubin 12.5 H (0.2-1.0) mg/dL AST 99 H (15-37) U/L ALT 36 (16-63) U/L Alkaline Phosphatase 251 H (46-116) U/L Creatine Kinase 88 (39-308) U/L Total Protein 6.9 (6.4-8.2) g/dL Albumin 1.7 L (3.4-5.0) g/dL Globulin 5.2 Albumin/Globulin Ratio 0.33 Urine Color (YELLOW) Urine Appearance (CLEAR) Urine pH (5.0-9.0) Ur Specific [place] (1.005-1.030) Urine Protein (NEGATIVE) Urine Glucose (UA) (NEGATIVE) Urine Ketones (NEGATIVE) Urine Occult Blood (NEGATIVE) Urine Nitrite (NEGATIVE) Urine Bilirubin (NEGATIVE) Urine Urobilinogen (0.2-1.0) mg/dL Ur Leukocyte Esterase (NEGATIVE) Urine RBC /HPF Urine WBC (0-5/HPF) /HPF Ur Epithelial Cells (NOT SEEN) /HPF Amorphous Sediment (NOT SEEN) /HPF Urine Bacteria (0-FEW/HPF) /HPF Granular Casts (Auto) Urine Mucus (NOT SEEN) /LPF Urine Opiates Screen (NEGATIVE) Ur Oxycodone Screen (NEGATIVE) Urine Methadone Screen (NEGATIVE) Ur Barbiturates Screen (NEGATIVE) U Tricyclic Antidepress (NEGATIVE) Ur Phencyclidine Scrn (NEGATIVE) Ur Amphetamine Screen (NEGATIVE) U Methamphetamines Scrn (NEGATIVE) Urine MDMA Screen (NEGATIVE) U Benzodiazepines Scrn (NEGATIVE) Urine Cocaine Screen (NEGATIVE) U Marijuana (THC) Screen (NEGATIVE) Ethyl Alcohol 208 (0) mg/dL SARS CoV-2 RNA Rapid MADIE (NEGATIVE) 09/08/20 09/08/20 09/08/20 Range/Units 22:45 22:45 23:39 WBC (5.0-10.0) 10^3/uL RBC (4.6-6.2) 10^6/uL Hgb (14.0-18.0) g/dL Hct (40.0-54.0) % MCV (80-100) fL MCH (27.0-34.0) pg MCHC (33.0-35.0) g/dL Plt Count (150-450) 10^3/uL Neut % (Auto) (42.2-75.2) % Lymph % (Auto) (20.5-50.1) % [place] % (Auto) (2-8) % Eos % (Auto) (1.0-3.0) % Baso % (Auto) (0.0-1.0) % Add Manual Diff Neutrophils % (Manual) (42-75) % Band Neutrophils % % Lymphocytes % (Manual) (20-50) % Monocytes % (Manual) (2-8) % Eosinophils % (Manual) (1-3) % Platelet Estimate PT (9.0-12.0) SEC INR (0.9-1.2) Sodium (136-145) mmol/L Potassium (3.5-5.1) mmol/L Chloride (98-107) mmol/L Carbon Dioxide (21-32) mmol/L Anion Gap (7-13) mEq/L BUN (7-18) mg/dL Creatinine (0.70-1.30) mg/dL Est Cr Clr Drug Dosing mL/min Estimated GFR (MDRD) BUN/Creatinine Ratio (No establ ref range) Glucose (74-99) mg/dL Calcium (8.5-10.1) mg/dL Total Bilirubin (0.2-1.0) mg/dL AST (15-37) U/L ALT (16-63) U/L Alkaline Phosphatase (46-116) U/L Creatine Kinase (39-308) U/L Total Protein (6.4-8.2) g/dL Albumin (3.4-5.0) g/dL Globulin Albumin/Globulin Ratio Urine Color [place] (YELLOW) Urine Appearance Turbid (CLEAR) Urine pH 6.0 (5.0-9.0) Ur Specific [place] 1.025 (1.005-1.030) Urine Protein 30 H (NEGATIVE) Urine Glucose (UA) 100 H (NEGATIVE) Urine Ketones Trace H (NEGATIVE) Urine Occult Blood Small H (NEGATIVE) Urine Nitrite Negative (NEGATIVE) Urine Bilirubin Large H (NEGATIVE) Urine Urobilinogen >=8.0 H (0.2-1.0) mg/dL Ur Leukocyte Esterase Large H (NEGATIVE) Urine RBC 5-10 H /HPF Urine WBC 40-50 H (0-5/HPF) /HPF Ur Epithelial Cells Few (NOT SEEN) /HPF Amorphous Sediment Moderate (NOT SEEN) /HPF Urine Bacteria Rare (0-FEW/HPF) /HPF Granular Casts (Auto) Rare Urine Mucus Few H (NOT SEEN) /LPF Urine Opiates Screen Negative (NEGATIVE) Ur Oxycodone Screen Negative (NEGATIVE) Urine Methadone Screen Negative (NEGATIVE) Ur Barbiturates Screen Negative (NEGATIVE) U Tricyclic Antidepress Negative (NEGATIVE) Ur Phencyclidine Scrn Negative (NEGATIVE) Ur Amphetamine Screen Negative (NEGATIVE) U Methamphetamines Scrn Negative (NEGATIVE) Urine MDMA Screen Negative (NEGATIVE) U Benzodiazepines Scrn Negative (NEGATIVE) Urine Cocaine Screen Negative (NEGATIVE) U Marijuana (THC) Screen Positive H (NEGATIVE) Ethyl Alcohol (0) mg/dL SARS CoV-2 RNA Rapid MADIE Negative (NEGATIVE) Meds: Medications Discontinued Medications Generic Name Dose Route Start Last Admin Trade Name Freq PRN Reason Stop Dose Admin Fentanyl 50 mcg 09/08/20 22:03 09/08/20 22:14 Sublimaze IVPUSH 09/08/20 22:04 50 mcg ONETIME ONE Administration Hydromorphone HCl 0.5 mg 09/09/20 00:03 09/09/20 01:31 Dilaudid IVPUSH 09/09/20 00:04 0.5 mg ONETIME ONE Administration Potassium Chloride 10 meq/ 100 mls @ 100 mls/hr 09/09/20 00:03 09/09/20 00:14 Premix IV 09/09/20 01:02 100 mls/hr ONETIME ONE Administration Sodium Chloride 1,000 mls @ 200 mls/hr 09/09/20 00:04 09/09/20 00:14 Normal Saline IV 09/09/20 05:03 200 mls/hr .BOLUS ONE Administration Iopamidol 100 ml 09/08/20 22:05 09/09/20 00:14 Isovue-300 (61%) IVPUSH 09/08/20 22:06 25 ml ONETIME ONE Administration Iopamidol 100 ml 09/09/20 00:09 Isovue-300 (61%) IVPUSH 09/09/20 00:10 ONETIME ONE Ondansetron HCl 4 mg 09/08/20 22:03 09/08/20 22:14 Zofran IVPUSH 09/08/20 22:04 4 mg ONETIME ONE Administration Departure - Departure Time of Disposition: 01:34 Disposition: DC/Tfer to [facility] 02 Clinical Impression: Contusion of thigh, Thrombocytopenia, Mid back pain, Easy bruising, Hypokalemia, Jaundice, Hyperbilirubinemia Alcohol intoxication Qualifiers: Complication of substance-induced condition: uncomplicated Qualified Code(s): F10.920 - Alcohol use, unspecified with intoxication, uncomplicated Fall Qualifiers: Encounter type: initial encounter Qualified Code(s): W19.XXXA - Unspecified fall, initial encounter Ascites Qualifiers: Ascites type: due to alcoholic cirrhosis Qualified Code(s): K70.31 - Alcoholic cirrhosis of liver with ascites Cirrhosis Qualifiers: Hepatic cirrhosis type: alcoholic cirrhosis Ascites presence: with ascites Qualified Code(s): K70.31 - Alcoholic cirrhosis of liver with ascites - Discharge Information *PRESCRIPTION DRUG MONITORING PROGRAM REVIEWED*: Not Applicable *COPY OF PRESCRIPTION DRUG MONITORING REPORT IN PATIENT LEON: Not Applicable Referrals: PCP,None [Primary Care Provider] - Forms: ED Department Discharge Sepsis Event Note (ED) - Evaluation Sepsis Screening Result: No Definite Risk - Focused Exam Vital Signs: Vital Signs Temp Pulse Resp BP Pulse Ox 09/08/20 21:13 100.3 F 98 16 144/76 H 96 - My Orders Last 24 Hours: My Active Orders 09/08/20 22:45 CULTURE URINE [RM] Stat - Assessment/Plan Last 24 Hours: My Active Orders 09/08/20 22:45 CULTURE URINE [RM] Stat
[2020-09-09] MEDS ORDERED: HYDROmorphone 0.5 MG/0.5 ML Syringe IVPUSH ONE (00:03)
[2020-09-09] MEDS ORDERED: Potassium Chloride 10 MEQ in Premix Bag 1 BAG IV ONE (00:03)
[2020-09-09] MEDS ORDERED: Sodium Chloride 0.9% 1,000 ML IV ONE (00:04)
[2020-09-09] MEDS ORDERED: Iopamidol 612 MG/ML 100 ML Bottle IVPUSH ONE (00:09)
[2020-09-09] MEDS: Iopamidol 612 MG/ML 100 ML Bottle IVPUSH ONE (00:14)
--- NOTE | 2020-09-09 00:16 | CT ---
PROCEDURE INFORMATION: Exam: CT Thoracic Spine Without Contrast Exam date and time: 09/08/2020 10:43 PM Age: 40 years old Clinical indication: Injury or trauma; Fall; Swelling (edema); Additional info: Fall swelling, bruising pain TECHNIQUE: Imaging protocol: Computed tomography images of the thoracic spine without contrast. Radiation optimization: All CT scans at this facility use at least one of these dose optimization techniques: automated exposure control; mA and/or kV adjustment per patient size (includes targeted exams where dose is matched to clinical indication); or iterative reconstruction. COMPARISON: No relevant prior studies available. FINDINGS: Vertebrae: [id number] grade disc space narrowing with endplate sclerosis and endplate osteophyte formation present throughout the thoracic spine. Vertebral body height and alignment are well maintained. Fractures are identified. Facet joints remain in anatomic alignment. Mediastinum: Incidental note is made of a small hiatal hernia. Pleural space: A small to moderate size pleural effusion is present on the right. No pneumothorax is present. IMPRESSION: 1. No acute fracture or subluxation of the thoracic spine. 2. Small to moderate size right sided pleural effusion.
--- NOTE | 2020-09-09 00:17 | CR ---
PROCEDURE INFORMATION: Exam: XR Right Femur Exam date and time: 09/08/2020 11:14 PM Age: 40 years old Clinical indication: Injury or trauma; Fall; Swelling (edema); Hip; Right; Additional info: Fall swelling, bruising pain TECHNIQUE: Imaging protocol: XR Right femur. Views: 1 view. COMPARISON: No relevant prior studies available. FINDINGS: Bones/joints: Multiple views of the right femur demonstrate no evidence for fracture. There is normal mineralization and alignment. Joint spaces are relatively well preserved. Soft tissues: Unremarkable. IMPRESSION: 1. No acute osseous injury present.
--- NOTE | 2020-09-09 00:18 | CR ---
PROCEDURE INFORMATION: Exam: XR Right Ankle Exam date and time: 09/08/2020 11:22 PM Age: 40 years old Clinical indication: Injury or trauma; Fall; Swelling (edema); Ankle; Right; Additional info: Fall swelling, bruising pain TECHNIQUE: Imaging protocol: XR Right ankle. Views: 1 or 2 views. COMPARISON: No relevant prior studies available. FINDINGS: Bones/joints: Multiple views of the right ankle demonstrate contour abnormality of the distal tibia and posterior tibia. These appear to represent old fractures. The ankle mortise appears to be intact. Subtalar joints appear to be in anatomic alignment. Soft tissues: Normal. IMPRESSION: Age indeterminate probably old fractures involving the posterior tibia and distal fibula. If clinical concern for acute fracture is high, CT scan could be considered.
--- NOTE | 2020-09-09 00:19 | CR ---
PROCEDURE INFORMATION: Exam: XR Right Tibia and Fibula Exam date and time: 09/08/2020 11:19 PM Age: 40 years old Clinical indication: Injury or trauma; Fall; Swelling (edema); Lower leg; Right; Additional info: Fall swelling, bruising pain TECHNIQUE: Imaging protocol: XR Right tibia and fibula. Views: 2 views. COMPARISON: CR Femur Min 1V Rt 09/08/2020 11:14 PM FINDINGS: Bones/joints: Multiple views of the right tibia and fibula demonstrate no evidence for fracture. Knee joint is in anatomic alignment. Soft tissues: Normal. IMPRESSION: 1. No definite acute injury identified. Please see right ankle report for details on the status of the ankle.
--- NOTE | 2020-09-09 00:20 | CR ---
PROCEDURE INFORMATION: Exam: XR Right Knee Exam date and time: 09/08/2020 11:18 PM Age: 40 years old Clinical indication: Injury or trauma; Fall; Swelling (edema); Knee; Right; Additional info: Fall swelling, bruising pain TECHNIQUE: Imaging protocol: XR Right knee. Views: 1 or 2 views. COMPARISON: CR Femur Min 1V Rt 09/08/2020 11:14 PM FINDINGS: Bones/joints: Multiple views of the right knee demonstrate contour abnormality of the proximal fibula which is likely due to old trauma. No acute fractures identified. Joint spaces are in anatomic alignment. Mild medial compartment joint space narrowing is present. Soft tissues: There appears to be mild soft tissue swelling. IMPRESSION: Soft tissue swelling with degenerative change. No acute osseous abnormality present.
--- NOTE | 2020-09-09 00:25 | CT ---
PROCEDURE INFORMATION: Exam: CT Chest With Contrast Exam date and time: 09/08/2020 10:46 PM Age: 40 years old Clinical indication: Injury or trauma; Fall; Swelling (edema); Additional info: Fall swelling, bruising pain TECHNIQUE: Imaging protocol: Computed tomography of the chest with intravenous contrast. Radiation optimization: All CT scans at this facility use at least one of these dose optimization techniques: automated exposure control; mA and/or kV adjustment per patient size (includes targeted exams where dose is matched to clinical indication); or iterative reconstruction. Contrast material: [id number]; Contrast volume: 125 ml; Contrast route: INTRAVENOUS (IV); COMPARISON: CT Pelvis wo Cont 04/17/2020 9:34 PM FINDINGS: Lungs: Patchy density in the right lower lobe likely represents atelectasis. There is no pulmonary contusion. Pleural space: A small to moderate size right pleural effusion is present. There is no pneumothorax. Heart: Mild coronary atherosclerosis is present. This is prominently along course of the left anterior descending coronary artery. No significant pericardial effusion. No mediastinal hematoma. Aorta: Unremarkable. No aortic aneurysm. Lymph nodes: Unremarkable. No enlarged lymph nodes. Bones/joints: Unremarkable. No acute fracture. Soft tissues: Unremarkable. IMPRESSION: 1. Small to moderate size right pleural effusion. 2. No definite acute intrathoracic injury identified. PROCEDURE INFORMATION: Exam: CT Abdomen And Pelvis With Contrast Exam date and time: 09/08/2020 10:46 PM Age: 40 years old Clinical indication: Injury or trauma; Fall; Swelling (edema); Additional info: Fall swelling, bruising pain TECHNIQUE: Imaging protocol: Computed tomography of the abdomen and pelvis with intravenous contrast. Radiation optimization: All CT scans at this facility use at least one of these dose optimization techniques: automated exposure control; mA and/or kV adjustment per patient size (includes targeted exams where dose is matched to clinical indication); or iterative reconstruction. Contrast material: [id number]; Contrast volume: 125 ml; Contrast route: INTRAVENOUS (IV); COMPARISON: CT Pelvis wo Cont 04/17/2020 9:34 PM FINDINGS: Liver: The liver is small and nodular in contour compatible with cirrhosis. No focal hepatic lesion or hepatic injury identified. Gallbladder and bile ducts: Normal. No calcified stones. No ductal dilation. Pancreas: Normal. No ductal dilation. Spleen: The spleen is moderately enlarged. Adrenal glands: Normal. No mass. Kidneys and ureters: Normal. No hydronephrosis. Stomach and bowel: The distal esophagus is thickened. The stomach, duodenum, small bowel and colon are grossly unremarkable. Appendix: No evidence of appendicitis. Intraperitoneal space: A moderate amount of ascites is present. Attenuation within the ascites fluid is near that of water compatible with simple ascites. This does not appear to represent hemoperitoneum. Vasculature: Numerous varicosities are present within the upper abdomen compatible with portal hypertension. Numerous varicosities are present in the gastrohepatic ligament around the distal esophagus and in the anterior abdominal wall. Findings are compatible with portal hypertension. There is recanalization of the umbilical vein. Lymph nodes: Unremarkable. No enlarged lymph nodes. Urinary bladder: Unremarkable as visualized. Reproductive: Unremarkable as visualized. Bones/joints: Unremarkable. No acute fracture. Soft tissues: IMPRESSION: 1. Findings are compatible with cirrhosis and portal hypertension with expected findings related to this process. No acute intra-abdominal or intrapelvic injury identified.
--- NOTE | 2020-09-09 00:26 | CT ---
PROCEDURE INFORMATION: Exam: CT Lumbar Spine Without Contrast Exam date and time: 09/08/2020 10:43 PM Age: 40 years old Clinical indication: Injury or trauma; Fall; Swelling (edema); Additional info: Fall swelling, bruising pain TECHNIQUE: Imaging protocol: Computed tomography images of the lumbar spine without contrast. Radiation optimization: All CT scans at this facility use at least one of these dose optimization techniques: automated exposure control; mA and/or kV adjustment per patient size (includes targeted exams where dose is matched to clinical indication); or iterative reconstruction. COMPARISON: No relevant prior studies available. FINDINGS: Vertebrae: Lumbar vertebral body height and alignment are well maintained. No acute fractures are identified. Disc spaces are well preserved. Facet joints are in anatomic alignment. Sacrum appears to be intact. L1-L2: No significant disc protrusion. No severe spinal canal stenosis. No significant neural foraminal narrowing. L2-L3: No significant disc protrusion. No spinal canal stenosis. No neural foraminal narrowing. L3-L4: No significant disc protrusion. No severe spinal canal stenosis. No significant neural foraminal narrowing. L4-L5: No significant disc protrusion. No severe spinal canal stenosis. No significant neural foraminal narrowing. L5-S1: No significant disc protrusion. No severe spinal canal stenosis. No significant neural foraminal narrowing. Soft tissues: Unremarkable. IMPRESSION: 1. No acute injury to the lumbar spine.
== END 2020-09-09 01:38 ==
LOC: DL.ED 21:12
DX: S70.11XA Contusion of right thigh, initial encounter (principal); S30.1XXA Contusion of abdominal wall, initial encounter; M54.6 Pain in thoracic spine; M54.5 Low back pain; K70.31 Alcoholic cirrhosis of liver with ascites; F10.120 Alcohol abuse with intoxication, uncomplicated; E87.6 Hypokalemia; E80.6 Other disorders of bilirubin metabolism; D69.6 Thrombocytopenia, unspecified; Z20.828 Contact with and (suspected) exposure to other viral communicable diseases; Z88.2 Allergy status to sulfonamides; W00.0XXA Fall on same level due to ice and snow, initial encounter
CPT/HCPCS: 36415; 71260; 72128; 72131; 73551; 73560; 73590; 73600; 74177; 80053; 80305; 80307; 81001; 82550; 85025; 85610; 87086; 87635; 96365; 96375; 99285; J1170; J2405; J3010; J3480; J7030; Q9967; U0002